=== PATIENT | female | born 1945 | race Caucasian/White ===

== ENCOUNTER 2018-01-31 09:55 | Outpatient (CLI) | payer MEDICARE ==
--- NOTE | 2018-01-31 12:51 | CT ---
CT ABDOMEN AND PELVIS WITH AND WITHOUT CONTRAST: HISTORY: Bladder cancer eight years ago. Bladder mass. TECHNIQUE: Multiple contiguous axial images were obtained in a CT of the abdomen and pelvis with and without IV contrast. Post contrast images were obtained in nephrographic and expiratory phases. Coronal reform ats were performed. FINDINGS: No calcifications are seen in either kidney, either ureter, or within the urinary bladder. A subcent imeter hypodensity in the right lobe of the liver is too small to definitely characterize but may rep resent a cyst. There are multiple cysts in both kidneys, which are subcentimeter in size. The gallb ladder, adrenal glands, spleen, and pancreas are unremarkable. No free air, free fluid, or stranding changes are seen in the abdomen or pelvis. Calcified fibroids are seen in the uterus. The small bowel is unremarkable. There are numerous scat tered diverticula in the colon. No abnormality is seen in the urinary bladder. No abdominal or pelv ic lymphadenopathy is appreciated. No suspicious osseous lesions are identified. The abdominal wall soft tissues and visualized inferio r thorax are unremarkable. IMPRESSION: 1. No significant bladder abnormality. 2. Bilateral renal cysts. 3. Likely small hepatic cysts. 4. Fibroid uterus. 5. Diverticulosis. POS: [facility]
[2018-01-31] MEDS ORDERED: Iopamidol 370 76% 100 ML VIAL ONE (14:02)
== END 2018-01-31 09:56 | disposition home or self-care (01) ==
LOC: BICCT 09:55
PROVIDERS: ATTEND Urology
DX: C67.2 Malignant neoplasm of lateral wall of bladder (principal); N28.1 Cyst of kidney, acquired; K76.89 Other specified diseases of liver; D25.9 Leiomyoma of uterus, unspecified; K57.90 Diverticulosis of intestine, part unspecified, without perforation or abscess without bleeding
CPT/HCPCS: 74178; 82565

== ENCOUNTER 2024-05-03 15:23 | Emergency (ER) | payer MEDICARE | END 2024-05-03 16:32 | disposition home or self-care (01) | LOC: ERS 15:23 | DX: S05.12XA Contusion of eyeball and orbital tissues, left eye, initial encounter (principal); S09.90XA Unspecified injury of head, initial encounter; V89.2XXA Person injured in unspecified motor-vehicle accident, traffic, initial encounter | CPT/HCPCS: 70450; 70486; 71045; 72125; G0390 ==